=== PATIENT | male | born 1990 | race Caucasian/White ===

== ENCOUNTER 2017-07-19 18:44 | Emergency (ER) | payer OTHER ==
[~2017-07-19] VITALS: Ht 175.3 cm; Wt 81.6 kg
[~2017-07-19 18:44] MED LIST: BACITRACIN30 GM TOP; BENADRYL PO; DICLOFENAC PO; ELIMITE60 GM TOP; NEURONTIN100 MG
== END 2017-07-19 20:20 | disposition home or self-care (01) ==
LOC: SED 18:44
DX: Z76.0 Encounter for issue of repeat prescription (principal); R11.2 Nausea with vomiting, unspecified; R19.7 Diarrhea, unspecified; F17.210 Nicotine dependence, cigarettes, uncomplicated; Z88.0 Allergy status to penicillin
CPT/HCPCS: 99283